=== PATIENT | male | born 1980 | race African-American/Black ===

== ENCOUNTER 2016-05-15 23:09 | Emergency (ER) | payer MEDICARE, OTHER ==
--- NOTE | ~2016-05-15 | CT16 ---
[facility] A Service of [facility] [place] RADIOLOGY TEXT RESULTS PATIENT: RODRÍGUEZ LOZANO LOCATION: SED : 78 UNIT #: [id number] AGE: [address]: Andres Jackson MD SEX: M ORDER DR: [id number] [address] [address] [id number] E MR#: [id number] #: [id number] NAME: RODRÍGUEZ LOZANO : 1980 SEX: M STUDY DATE/TIME: 05/16/2016 0:10 UNIT: SED ROOM: STUDY DESCRIPTION: CT Angio Chest for PE Attending Physician: Andres Jackson M.D. Ordering Physician: Andres Jackson M.D. Primary Care Physician: Primary Care Physician No MEDICAL IMAGING REPORT This report is preliminary unless electronic signature is present. EXAM Chest CT PE protocol with contrast 05/16/2016 INDICATIONS Elevated D-dimer, chest pain onset of symptoms tonight. TECHNIQUE Contrast enhanced CT scan chest PE protocol was performed with 3-D reformats. No comparisons. The CT exam was performed with one or more of the following radiation dose reduction techniques: automatic exposure control, adjustment of mA and/or kV according to patient size, and iterative reconstruction. FINDINGS CT chest IV bolus adequate. Images were repeated due to inadequate bolus timing on the initial bolus. Although there is adequate opacification of the central main left and right pulmonary arteries beyond the first order branches the pulmonary arteries are not well opacified or assessed. Aorta demonstrates no distinct aneurysm or dissection. There is no evidence of acute pulmonary embolus in the main left or right central pulmonary arteries. Beyond that level the pulmonary arteries are not well opacified and the presence or absence of filling defects cannot be ascertained particularly in the upper lobes. Included thyroid unremarkable. No pericardial effusion or axillary adenopathy. No mediastinal adenopathy. Upper abdomen demonstrates surgical absence of the gallbladder but no acute finding. Lungs essentially clear. No pneumothorax or effusion. Osseous structures demonstrate no suspicious bone lesion. [facility] A Service of [facility] [place] RADIOLOGY TEXT RESULTS PATIENT: RODRÍGUEZ LOZANO LOCATION: SED : 78 UNIT #: [id number] AGE: [address]: Andres Jackson MD SEX: M ORDER DR: IMPRESSION 1. No aortic aneurysm or dissection. 2. No PE in the central pulmonary dural tree. 3. Lungs clear. 4. Upper abdomen negative. Dictated by... Bryn Phoenix M.D. THIS IS AN ELECTRONICALLY VERIFIED REPORT Bryn Phoenix M.D. at 05/16/2016 10:00 PM Latoya TD: 05/16/2016 09:34 JOB #: [id number] MEDICAL IMAGING REPORT Page 1 of 1
--- NOTE | ~2016-05-15 | EKG ---
PATIENT: RODRÍGUEZ LOZANO UNIT #: [id number] Ventricular Rate: 56 BPM Atrial Rate: 56 BPM P-R Interval: 160 ms QRS Duration: 116 ms Q-T Interval: 418 ms QTC Calculation(Bezet): 403 ms P [place]: 37 degrees Calculated R [place]: 1 degrees Calculated T [place]: 41 degrees Diagnosis Line: Sinus bradycardia Diagnosis Line: Otherwise normal ECG Diagnosis Line: When compared with ECG of 06-MAR-2016 20:44, Diagnosis Line: No significant change was found Diagnosis Line: Confirmed by MIRIAM SHERMAN MD ([id number]) on 05/17/2016 Diagnosis Line: 9:13:14 PM INTERPRETING MD: WHIT MOORE
[~2016-05-15 23:09] MED LIST: ADVAIR 100-501 EAC1; CLARITIN10 M2; COREG; ELIQUIS2.5 MG; LASIX; LISINOPRIL; NEXIUM; PRAVACHOL; VISTARIL; ZOLOFT
[2016-05-15 23:37] LABS: BASOPHIL# 0.1 X10e3 (0-0.3); BASOPHIL% 1.2 % (0-2.5); EOSINOPHIL# 0.6 X10e3 (0-0.7); EOSINOPHIL% 10.7 % (0.0-7.0); HEMATOCRIT 36.8 % (38.0-50.0); LYMPHOCYTE% 35.4 % (17.0-45.0); MEAN CELL VOLUME 84.9 FL (83-96); MEAN CORPUSCULAR HEMOGLOBIN 27.6 PG (28-34); MEAN CORPUSCULAR HGB CONC 32.5 g/dL (30-36); MEAN PLATELET VOLUME 8.7 FL (6.5-11.5); MONOCYTE# 0.5 X10e3 (0-1.0); NEUTROPHIL# 2.5 X10e3 (1.5-7.1); NEUTROPHIL% 43.7 % (40-75); PLATELET COUNT 182 X10e3 (140-420); RED BLOOD COUNT 4.33 X10e (3.90-5.60); RED CELL DISTRIBUTION WIDTH 15.7 % (11.0-15.5); WHITE BLOOD COUNT 5.7 X10e3 (4.0-10.5)
[2016-05-15 23:41] LABS: DIFF IND NO
[2016-05-15 23:45] LABS: POC - CKMB <1.0 ng/mL (0.0-7.9); POC - MYOGLOBIN 39.6 ng/mL (0.0-169.0); POC - TROPONIN <0.05 ng/mL (<=0.05)
[2016-05-16 00:01] LABS: ALBUMIN SERUM 3.6 g/dL (3.5-5.0); ALKALINE PHOSPHATASE 69 U/L (32-92); ALT (SGPT) 25 U/L (10-40); AST (SGOT) 18 U/L (10-42); BILIRUBIN, DIRECT <0.1 mg/dL (0.0-0.2); BILIRUBIN,INDIRECT 0.3 mg/dL (0.0-0.9); BILIRUBIN,TOTAL 0.4 mg/dL (0.2-2.0); BLOOD UREA NITROGEN 23 mg/dL (9-23); BUN/CREATININE RATIO 25.55; CALCIUM SERUM 8.9 mg/dL (8.4-10.2); CARBON DIOXIDE 25 mmol/L (22-31); CHLORIDE 111 mmol/L (100-111); CREATININE SERUM 0.9 mg/dL (0.6-1.4); GLOM FILT RATE Estimated 126.9 mL/min (>60); GLUCOSE FASTING 90 mg/dL (70-110); PROTEIN TOTAL SERUM 7.2 g/dL (6.0-8.3); SODIUM 141 mmol/L (135-145)
[2016-05-16 00:02] LABS: PARTIAL THROMBOPLASTIN TIME 24.1 SECONDS (25.6-38.1); PROTHROMBIN TIME (PATIENT) 11.6 SECONDS (9.5-12.4)
[2016-05-16 01:53] LABS: POC - CKMB <1.0 ng/mL (0.0-7.9); POC - MYOGLOBIN 49.5 ng/mL (0.0-169.0); POC - TROPONIN <0.05 ng/mL (<=0.05)
== END 2016-05-16 02:16 | disposition home or self-care (01) ==
LOC: SED 23:09
PROVIDERS: Emergency Medicine
DX: R07.9 Chest pain, unspecified (principal); I11.0 Hypertensive heart disease with heart failure; I50.9 Heart failure, unspecified; K21.9 Gastro-esophageal reflux disease without esophagitis; F17.200 Nicotine dependence, unspecified, uncomplicated; Z86.718 Personal history of other venous thrombosis and embolism
CPT/HCPCS: 36415; 71275; 80048; 80076; 82553; 83874; 84484; 85025; 85379; 85610; 85730; 93005; 96374; 99284; C9113; Q9967